=== PATIENT | female | born 1985 | race Two or more races ===

== ENCOUNTER 2025-09-24 13:08 | Outpatient (AMB) | payer MEDICAID, SELFPAY ==
[2025-09-24 13:19] VITALS: BP 100/60; PULSE 104; RESP 18; TEMP 36.8; O2SAT 98
--- NOTE | 2025-09-24 13:19 | OBCLNT_ITS ---
Vital Signs 09/24/25 13:19 Weight 74.162 kg Weight Measurement Method Standing Scale BP 100/60 Blood Pressure Source Automatic Cuff Blood Pressure Location Left Upper Arm Position Sitting Respiration 18 Pulse 104 H Pulse Source Monitor Temp 98.2 F Temp Source Oral Pulse Oximetry (%) 98 Oxygen Delivery Method Room Air Allergies/Home Meds Allergies & Medications Allergies No Known Allergies Allergy (Verified 09/25/25 09:15) Medication Reconciliation No Known Home Medications 09/24/25 [History Confirmed 09/25/25] Intake Visit Data Collection New Patient or Established: New Patient (never been to [facility]) Reason for Visit:: ob care Seen by Clinical Staff ONLY (RN/MA): No Sr. Media Manager Required: Yes Do You Feel Safe at Home: Yes Authorities Contacted: N/A PCP or OBGYN visit in last 3 months: Yes Hx Now: Yes Are you currently on any form of Control: No Last menstrual period: 01/02/25 Pain Present Currently: No Pain Scale Used: Henderson-Ortiz/Numerical Pain scale:: 0 Smoking Status Smoking Status: Never smoker Immunizations Flu Vaccine in the Last 12 Months: No Flu Vaccine Exclusion Criteria: No Exclusion Criteria Questionnaires Covid-19 Vaccine Questionnaire Has patient been vacinated for Covid-19 Have you been vacinated for Covid-19: Yes PHQ-9 PHQ-2 Over the last 2 weeks, how often have you been bothered by any of the following problems? 1. Little interest or pleasure in doing things: not at all 2. Feeling down, depressed, or hopeless: not at all Total score: 0 PHQ-9 3. Trouble falling or staying asleep, or sleeping too much: Not at all 4. Feeling tired or having little energy: Not at all 5. Poor appetite or overeating: Not at all 6. Feeling bad about yourself - or that you are a failure or have let yourself or your family down: Not at all 7. Trouble concentrating on things, such as reading the newspaper or watching television: Not at all 8. Moving or speaking so slowly that other people could have noticed? - Or the opposite - being so fidgety or restless that you have been moving around a lot more than usual: not at all 9. Thoughts that you would be better off or of hurting yourself in some way: Not at all Total score: 0 If you checked off any problems, how difficult have these problems made it for you to do your work, take care of things at home, or get along with other people?: not difficult at all Source: Developed by Drs. Hemal Beckett, Radha Lee, Tenzin Cole and colleagues, with an educational yolanda from [employer]. Depression screen completed yes Social History Living Situation History Marital Status: Single Lives With: Family Housing: House Tobacco History Smoking Status: Never smoker Second Hand Smoke Exposure: No Alcohol History Alcohol Intake: Never Domestic Abuse History Do You Feel Safe at Home: Yes OB Initial Visit OB Flowsheet OB Flowsheet Initial Weight: Not Recorded Date -?-?-?-?-?-?-?-?-?-?-?-?- EGA Weight BP Alb Glu CTX Pres Fundal ht FHR Mov Dilation Station Effacement Hx Notes Visit Note 09/24/25 -?-?-?-?-?-?-?-?-?-?-?-?- 39w 0d 74.162 kg 100/60 occasional cephalic 38 145 active 09/25/25 -?-?-?-?-?-?-?-?-?-?-?-?- 39w 1d 74.899 kg 115/74 occasional 38 150 active Menstrual History Menstrual reliability: definite Flow: normal Menstrual regularity: regular Monthly: Yes Age at menarche: 15 On control pills at conception: No OB History : 5 Para: 3 Hx Total # of Abortions (Spontaneous & Elective): 1 # of Living Children: 3 Delivery History 1st : Child's name: NA date: 03/24/09 sex: female Delivery type: weight (oz): 3628.739 g History of depression before or after : No 2nd : Child's name: NA date: 03/02/13 sex: male Delivery type: weight (oz): 3628.739 g History of depression before or after : No 3rd : Child's name: NA date: 04/09/20 sex: female Delivery type: History of depression before or after : No Infection History & Risk Evaluation History of STDs: none HIV risk evaluation: low risk Hepatitis B risk evaluation: low risk Patient or partner has history of Genital Herpes: No Varicella/chicken pox status: immunized Genetic Screening & History Genetic Screening/Teratology Counseling - Includes patient, baby's father, or anyone in either family with: 1. Patient's age 35 years or older as of estimated date of delivery: Yes 2. Thalassemia (Yi, Indonesian, Mediterranean, or Background); MCV less than 80: No 3. Neural Tube Defect (Meningomyelocele, Spina Bifida, or Anencephaly): No 4. Congenital Heart Defect: No 5. Down Syndrome: No 6. Cristian-Sachs (Ashkenazi Church, Cajun, [place]): No 7. Herson Disease (Ashkenazi Church): No 8. Familial Dysautonomia (Ashkenazi Church): No 9. Sickle Cell Disease or Trait (): No 10. Hemophilia or other blood disorders: No 11. Muscular Dystrophy: No 12. Cystic Fibrosis: No 13. [place]'s Chorea: No 14. Mental Retardation/Autism: No 15. Other inherited genetic or chromosomal disorder: No 16. Maternal Metabolic Disorder (EG,TYPE 1 Diabetes, PKU): No 17. Patient or baby's father had a child with defects not listed above: No 18. Recurrent loss or a stillbirth: No 19. Medications (including supplements, vitamins, herbs or otc drugs)/illicit/recreational drugs/alcohol since last menstrual period: No 20. Any other: No Infection History 1. Live with someone with TB or exposed to TB: No 2. Rash or viral illness since last menstrual period: No 3. Hepatitis B,C: No Other (see comments) Source: [employer] [place] [employer] Review of Systems Review of Systems Systems Reviewed: All systems reviewed, normal except as documented Exam Narrative Physical exam: Size equal to38 weeks / term uterus non tender Occasional/ contractions non tender FHR is 140's feta presentation is vertex bedside US placenta is corporal or fundus, body General Limitations: no limitations General Appearance: alert and cooperative Office Procedures OBC Clinic LOC & Office Proc's Nursing/Assessment Patient Status: Initial/New Patient OB Clinic Nursing Assessment: Medication Reconciliation, Update PMH in EMR and Vital Signs OB Clinic Coordination of Care: Consent,records obtained, informed consent, Education Simp Pt/Fam, Lab and Imaging orders, Results/Orders obtained and Staff clarify orders Special Needs: Heart tones New Patient Charge New Patient Point Assignment: [id number] New Patient Point Charge: TECHNICAL COMMUNICATION TEACHER Level 3 (4760-1967) Assessment & Plan Diagnosis / Problem List (1) : Status: Acute Qualifiers: Weeks of gestation: 37 weeks Qualified Code(s): Z3A.37 - 37 weeks gestation of (2) Previous delivery affecting : Status: Acute (3) Insufficient care: Status: Acute Qualifiers: Trimester: unspecified trimester Qualified Code(s): O09.30 - Supervision of with insufficient care, unspecified trimester Additional Plan to L&D for NST / Ob complete US and then if discharged to follow up in 1 day and will schedule repeat LTCS
== END 2025-09-24 13:53 | disposition home or self-care (01) ==
LOC: HODSOBC 13:08
PROVIDERS: PCP Nurse Practitioner; Referring Provider Nurse Practitioner; Supervising Provider Obstetrics & Gynecology; Visit Provider Obstetrics & Gynecology
DX: O09.33 Supervision of pregnancy with insufficient antenatal care, third trimester (principal); O09.293 Supervision of pregnancy with other poor reproductive or obstetric history, third trimester; O34.211 Maternal care for low transverse scar from previous cesarean delivery; O09.523 Supervision of elderly multigravida, third trimester; Z3A.39 39 weeks gestation of pregnancy
CPT/HCPCS: 99203; G0463

== ENCOUNTER 2025-09-24 13:59 | Outpatient (CLI) | payer MEDICAID, SELFPAY ==
--- NOTE | 2025-09-24 14:07 | XR_ITS ---
Examination: Complete OB ultrasound greater than 14 weeks Date and time of exam: September 24, 2025, 1420 hours INDICATIONS: Limited care Findings: Viable intrauterine single fetus with single amniotic sac presentation cephalic spine maternal left Cardiac motion 153 bpm Placenta posterior grade 2 Umbilical cord insertion seen Amniotic fluid index 16.4 cm Cervix 3.7 cm Ovaries obscured by the fetus. Composite estimated gestational age based on BPD, head circumference, abdominal circumference, femur length is 39 weeks 3 days Estimated weight 3705 g. Survey of intracranial anatomy, spinal anatomy, abdominal anatomy, four-chamber heart performed with no abnormalities identified. Impression: Viable intrauterine gestation in cephalic presentation.
[2025-09-24 14:08] VITALS: BP 119/77; PULSE 100; RESP 18; RESP 98; TEMP 36.8; BMI 29.9
[2025-09-24 14:10] VITALS: BP 119/77; PULSE 100
[2025-09-24 14:43] VITALS: BP 118/67; PULSE 95
[2025-09-24] MEDS: RINGERS LACTATED 1000 ML 1,000 ML 999 ML IV (16:48)
== END 2025-09-24 16:25 | disposition home or self-care (01) ==
LOC: S4S1 14:00 → S4SX 14:00
PROVIDERS: Referring Provider Obstetrics & Gynecology; Visit Provider Obstetrics & Gynecology
DX: O09.33 Supervision of pregnancy with insufficient antenatal care, third trimester (principal); Z3A.39 39 weeks gestation of pregnancy
CPT/HCPCS: 59025; 76805; J7120

== ENCOUNTER 2025-09-25 08:49 | Outpatient (AMB) | payer MEDICAID, SELFPAY ==
[2025-09-25 09:14] VITALS: BP 115/74; PULSE 89; RESP 16; TEMP 36.8; O2SAT 97; BMI 30.4
--- NOTE | 2025-09-25 09:14 | OBCLNT_ITS ---
Vital Signs 09/25/25 09:14 Height 1.57 m Height Method Stated Weight 74.899 kg Weight Measurement Method Standing Scale BMI 30.4 BP 115/74 Blood Pressure Source Automatic Cuff Blood Pressure Location Left Upper Arm Position Sitting Respiration 16 Pulse 89 Pulse Source Monitor Temp 98.2 F Temp Source Oral Pulse Oximetry (%) 97 Oxygen Delivery Method Room Air Allergies/Home Meds Allergies & Medications Allergies No Known Allergies Allergy (Verified 10/03/25 09:56) Medication Reconciliation docusate sodium 100 mg capsule 100 mg PO BID 10 days #20 caps 09/29/25 [Rx Confirmed 10/03/25] ferrous sulfate 325 mg (65 mg iron) tablet,delayed release 325 mg PO QDAY #30 tabs 09/29/25 [Rx Confirmed 10/03/25] hydrocodone 5 mg-acetaminophen 325 mg tablet 1 tab PO Q6H PRN Patient rated pain 7 to 8 7 days #15 tabs 09/29/25 [Rx Confirmed 10/03/25] ibuprofen 800 mg tablet 800 mg PO Q8HR PRN PAIN 4-6 OR FEVER > 101 10 days #30 tabs 09/29/25 [Rx Confirmed 10/03/25] Immunizations Immunizations Flu Vaccine in the Last 12 Months: Yes Flu Vaccine Exclusion Criteria: Already Received Care OB Visit Log OB Flowsheet Initial Weight: Not Recorded Date -?-?-?-?-?-?-?-?-?-?-?-?- EGA Weight BP Alb Glu CTX Pres Fundal ht FHR Mov Dilation Station Effacement Hx Notes Visit Note 09/24/25 -?-?-?-?-?-?-?-?-?-?-?-?- 39w 0d 74.162 kg 100/60 occasional cephalic 38 145 active 09/25/25 -?-?-?-?-?-?-?-?-?-?-?-?- 39w 1d 74.899 kg 115/74 occasional 38 150 active LIZETH Calculator Estimated Delivery Date Method Current WG Current Estimate 10/01/25 Ultrasound #1 40w 3d Other Estimates 10/09/25 LMP (Uncertain) 39w 2d Notes Visit Date: 09/25/25 Last Updated by: Haley Bui MD patient scheduled for repeat LTCS on 09/27/2025 and will be with OB physician automation engineer that day . That was the earliest day it could be accommodated . labor precautions given / labs from [facility] were faxed yesterday to L&D . Patient counselled on surgery and Risks and benefits and blood transfusion . she does not want tubal sterilization and has no consent anyways . Labor precautions given Visit Date: 09/24/25 Last Updated by: Haley Bui MD 39 years old , previous c section x 3 . initially seen at [facility] at 10.2 weeks based on LMP of 01/02/2025 Then she went to [place] and she tried to get seen at [facility] but they would not see her / Her labs / Us are all from [place] and she states she is going to be 39 weeks tomorrow per [place] records / she has previous 3 c sections and is not wanting sterilization She is c/o pain in pelvic area and will refer to the [facility] now for NST/ evaluation of the baby for AMA/ insufficient care and also uncertain dates there is no MSAFPor genetic screening or [place]ound in [place] . She is Rubella immune, RH positive, RPR NR and HIV and Hep B negative done in February 2025 at [facility] Office Procedures OBC Clinic LOC & Office Proc's Nursing/Assessment Patient Status: Established Patient OB Clinic Nursing Assessment: Medication Reconciliation, Update PMH in EMR and Vital Signs OB Clinic Coordination of Care: AMA, Complex Care and Chronic Disease 1-5, Consent,records obtained, informed consent, Education Simp Pt/Fam, 1 Ins Authorization, Lab and Imaging orders, Results/Orders obtained and Staff clarify orders Special Needs: Heart tones Established Patient Charge Established Patient Point Assignment: 170 Established Patient Point Charge: EP Level 5 (160-above) Assessment & Plan Diagnosis / Problem List (1) Insufficient care: Status: Acute Qualifiers: Trimester: unspecified trimester Qualified Code(s): O09.30 - Supervision of with insufficient care, unspecified trimester (2) Previous delivery affecting : Status: Acute (3) : Status: Acute Qualifiers: Weeks of gestation: 37 weeks Qualified Code(s): Z3A.37 - 37 weeks gestation of (4) Advanced maternal age (AMA) in : Status: Acute Additional Assessment patient scheduled for repeat LTCS on 09/27/2025 and will be with OB physician automation engineer that day . That was the earliest day it could be accommodated . labor precautions given / labs from [facility] were faxed yest arnulfo to L&D . Patient counselled on surgery and Risks and benefits and blood transfusion . she does not want tubal sterilization and has no consent anyways . Labor precautions given Additional Plan Patient was given the reason for proceeding with surgery. She was given the risk benefits and options. She chose to proceed with the surgery. Risks of surgery to include risk of infection bleeding, possible injury to the surrounding organs like the urinary bladder, intestines, ureter, uterus, tubes, ovaries, nerves, blood vessels, possible risk of wound dehiscence later on or hernia development later on in future. However the surgery is done when the benefits outweigh the risks Possible risks of blood transfusion and options were also discussed. All questions answered Patient willing to proceed with surgery.Scheduled for 09/27/2025 at 07.30 am
== END 2025-09-25 09:46 | disposition home or self-care (01) ==
LOC: HODSOBC 08:49
PROVIDERS: Supervising Provider Obstetrics & Gynecology; Visit Provider Obstetrics & Gynecology
DX: O09.33 Supervision of pregnancy with insufficient antenatal care, third trimester (principal); O09.523 Supervision of elderly multigravida, third trimester; O09.293 Supervision of pregnancy with other poor reproductive or obstetric history, third trimester; O34.211 Maternal care for low transverse scar from previous cesarean delivery; Z3A.39 39 weeks gestation of pregnancy
CPT/HCPCS: 99215; G0463

== ENCOUNTER 2025-09-27 05:05 | Inpatient (IN) | payer MEDICAID, SELFPAY ==
[2025-09-26 11:13] LABS: Basophils # (Auto) 0.0 Thou/mm3 (0.0-0.2); Basophils % (Auto) 1 % (0-2.5); Eosinophils # (Auto) 0.1 Thou/mm3 (0.0-0.5); Eosinophils % (Auto) 1 % (0-10); Hematocrit 34.1 % (36.0-46.0); Hemoglobin 11.5 g/dL (12.0-16.0); Immature Granulocytes Auto 0.08 Thou/mm3 (0.00-0.00); Lymphocytes # (Auto) 2.5 Thou/mm3 (1.0-4.8); Lymphocytes % (Auto) 30 % (10-50); Mean Corpuscular HGB Conc 33.7 g/dl (31.0-37.0); Mean Corpuscular Hemoglobin 31.9 pg (25.0-35.0); Mean Corpuscular Volume 95 fL (80-100); Monocytes # (Auto) 0.6 Thou/mm3 (0.0-0.8); Monocytes % (Auto) 8 % (0-12); Neutrophils # (Auto) 5.1 Thou/mm3 (1.8-7.7); Neutrophils % (Auto) 60 % (37-80); Nucleated Red Blood Cell # 0.00 Thou/mm3 (0.00-0.00); Nucleated Red Blood Cell % 0 /100 WBC (0); Platelet Count 158 Thou/mm3 (140-440); RDW Standard Deviation 44.7 fL (36.4-46.3); Red Blood Count 3.60 Miln/mm3 (4.00-5.20); White Blood Count 8.4 Thou/mm3 (3.6-11.0)
[2025-09-26 12:10] LABS: HIV (1&2) Antibody Rapid Non-Reactive
[2025-09-27] VITALS (20 sets, daily range): BP systolic 85–129; BP diastolic 49–75; PULSE 58–92; RESP 14–22; TEMP 36.3–36.9; O2SAT 97–100; BMI 29.2
[2025-09-27] MEDS: RINGERS LACTATED 1000 ML 1,000 ML 100 ML IV ×2 (05:30→07:19)
[2025-09-27 06:26] LABS: Syphilis Nonreactive (Nonreactive)
[2025-09-27 06:53] LABS: Influenza A Ag Negative; Influenza B Ag Negative
[2025-09-27 06:54] LABS: COVID-19 Antigen (In-House) Negative (Negative)
[2025-09-27] MEDS: CITRIC ACID/SODIUM CITR 15 ML UDC (BICITRA) 30 ML PO (07:23)
[2025-09-27] MEDS: FAMOTIDINE INJ 10 MG/ML VIAL 2 ML 20 MG IV (07:23)
[2025-09-27] MEDS: ceFAZolin/D5W 2 GM IV 2 GM/100 ML BAG IV (07:23)
--- NOTE | 2025-09-27 08:31 | ESOP_ITS ---
Operative Note - SPORTS EDITOR Procedure Date of procedure: 09/27/25 Procedure Performed: Repeat low-transverse section Indication: The patient is a 39-year-old -0-1-3 EDC 10/01/2025 with all care in [place] presents for scheduled elective repeat section. By dating, she is 39-3/7 weeks. She is [place]-speaking only. She was consented for a repeat low-transverse section through an official consulting solution manager. Of note she did not sign tubal ligation papers. Pre-Op diagnosis: 1. IUP 39-3/7 weeks 2. Previous x 3 Post-Op diagnosis: Same Anesthesia type: Spinal Procedure description: After obtaining informed consent, the patient was brought back to the operating room and spinal anesthesia administered. She was then prepped and draped in dorsal supine position with a leftward tilt in a normal sterile fashion. A Valderrama catheter was inserted into the patient's bladder. The patient was given 2 g of Ancef by anesthesia. A Pfannenstiel skin incision was made with the scalpel and the prior scar removed. The incision was carried down to the underlying fascia. The fascia was incised in the midline, and the fascial incision extended laterally using Zarco scissors. The superior aspect of the fascia was grasped with Savita clamps and the underlying rectus muscles dissected off using blunt and sharp dissection. This was repeated in the inferior aspect of the incision. The rectus muscles were in the midline and the peritoneum was entered using a scalpel and also with blunt dissection with surgeon's fingers. This was extended superiorly and inferiorly with good visualization of the bladder. The bladder blade was inserted the uterus was incised in a low transverse fashion with a scalpel above the bladder reflection. Of note, the lower lower uterine segment was bulging however there was no window present. The uterine incision was extended laterally with blunt dissection with the surgeon's fingers. The bag of landry was ruptured and copious clear fluid noted. The bladder blade was removed, and the infant was delivered in a vertex presentation atraumatically. The cord was clamped and cut after waiting 30 seconds as the baby was vigorous at . The infant was handed off to the waiting pediatric staff. Cord blood was sent. Cord gases were saved. The placenta was then manually removed, and the uterus exteriorized and cleared of all clots and debris. The uterine incision was repaired using 0 Monocryl in a running locked fashion. A couple of [id number] sutures of 2- 0 chromic were used to obtain excellent hemostasis. The uterus was returned to the patient's abdominal cavity, and copious irrigation carried out with warm normal saline. The uterine incision was reexamined several times and noted to be hemostatic. After ensuring the rectus muscles were hemostatic, these were reapproximated using 0 Monocryl in a running fashion. This fascia was closed with 0 Vicryl in a running fashion. The subcutaneous tissues were irrigated and found to be hemostatic. These were reapproximated using running suture of 2-0 plain. The skin was closed with subcuticular suture of 4-0 Monocryl. The patient tolerated the procedure well, sponge, lap, needle, and instrument counts were correct x 2. The patient went to the recovery awake in stable condition. Pathology was none. Fluids: crystalloid Fluid amount (mL): 1,200 Urine output (mL): 150 Specimen: none Implants: None Estimated blood loss (ml): 500 Findings: Liveborn female in the MEMO presentation with no nuchal cord or meconium Apgars were 9 and 9 weight was 9 pounds 9 ounces the placenta was complete spontaneous grossly normal. Both fallopian tubes and ovaries were normal. She had a thin lower uterine segment. Very little scar tissue present in the patient's abdomen. Complications: none Surgical staff Operation Date: 09/27/25 07:45 Case Staff SURGICAL AIDES TEACHER: Vazquez James RNsuperintendent maintenance: Aldo Means Diagnosis Discharge Diagnosis (1) Previous delivery affecting : Status: Acute Problem details: Patient's status post repeat #4 without complications. EBL was 500 cc. (2) Advanced maternal age (AMA) in : Status: Acute (3) care following delivery: Status: Acute Problem List Completed Was Problem List Reviewed/Reconciled?: Yes
--- NOTE | 2025-09-27 08:46 | ESHP_ITS ---
Documentation for date of: 09/27/25 OB Labor/Induct. HPI History of Present Illness Chief complaint: Scheduled repeat : 5 Para: 3 Term pregnancies: 3 pregnancies: 0 Living children: 3 History of Abortions: Spontaneous and Elective: 1 History of sections: Yes (X3) History of : No Date of last menstrual period: 01/02/25 LIZETH: 10/01/25 Gestational Age (weeks): 39 Gestational Age (days): 3 Gestational age based on last menstrual period: 38 History of present illness: The patient is a 39-year-old -0-1-3 who presents for scheduled repeat C- section. Most of her care was performed in [place]. She has an EDC of 10/01/2025. On the day of admission, she reported good movement no contractions no loss of fluids no vaginal bleeding. She never signed tubal ligation papers in the office but does not desire another . She states all her previous C-sections were uncomplicated. We have some records from [place] on the chart. The patient is Lao-speaking only and consented through an official repair department manager. She does understand some Georgian. History of Present Dating criteria: LMP confirmed by 2nd trimester US Adequate Care: Yes (In [place] ) Ultrasounds: normal mid trimester US Obstetrical complications: none Medical complications: none Labs Maternal Blood Type: O Pos Labs: Positive: Rubella Titre, Negative: RPR, Hepatitis B, HIV, Chlamydia and Gonorrhea and Unknown: Herpes Type 1, Herpes Type 2, Group Beta Strep and Covid-19 Past Medical History Surgical History SURGICAL: Positive Section (X3) Past Medical History Comments PMH COMMENT: Patient denies significant past medical history including asthma diabetes hypertension. She has a history of x 3. She states she had no complications after any of her C-sections. Meds Home Medications and Allergies Home Medications ?Medication ?Instructions ?Recorded ?Confirmed ?Type No Known Home Medications 09/24/2509/17 History Allergies Allergy/AdvReac Type Severity Reaction Status Date / Time No Known Allergies Allergy Verified 09/27/25 05:36 OB Exam Physical Exam Vital signs: Temp Pulse Resp BP Pulse Ox O2 Del Method 98 F 90 16 122/73 100 Room Air 09/27/25 05:17 09/27/25 05:17 09/27/25 05:17 09/27/25 05:17 09/27/25 06:57 09/27/25 05:17 Constitutional Constitutional: no acute distress Comments: Patient is alert and orient x 3 in no apparent distress. She is healthy with good color. Routine Respiratory Exam Respiratory: Present CTA bilaterally Routine Cardiovascular Exam Cardiovascular: Present RRR Routine Abdominal Exam Abdominal: Present soft and surgical scars (Prior Pfannenstiel scar x 3) Detailed Labor and Delivery Exam Membranes: intact monitor accelerations: 15x15 monitor decelerations: None rodent exterminator variability: Moderate (11-25) Contraction frequency (min): Irregular Routine Extremities Exam Comments: No cyanosis clubbing or edema OB Results Labs 09/26/25 09:40 Labs: Short CBC 09/26/25 Range/Units 09:40 WBC 8.4 (3.6-11.0) Thou/mm3 Hgb 11.5 L (12.0-16.0) g/dL Hct 34.1 L (36.0-46.0) % Plt Count 158 (140-440) Thou/mm3 OB Assessment & Plan Assessment and Plan (1) Previous delivery affecting : Status: Acute (2) Advanced maternal age (AMA) in : Status: Acute (3) care following delivery: Status: Acute
[2025-09-27] MEDS: OXYTOCIN in NS 20 units 20 UNIT/1,000 ML BAG 125 UNIT IV ×2 (10:01→17:27)
[2025-09-27] MEDS: ONDANSETRON INJ 2 MG/ML INJ 2 ML 4 MG IVP (10:15)
[2025-09-27] MEDS: KETOROLAC INJ 30 MG/ML VIAL IVP ×2 (10:26→17:27)
--- NOTE | 2025-09-27 10:26 | PD.LDDELS ---
Data (Cerda) Data Hx Section: Yes (X3) Maternal Blood Type: O Pos Rubella Titre: Positive RPR: Non-reactive Labs: Negative: RPR, Hepatitis B, HIV, Chlamydia and Gonorrhea and Unknown: Group Beta Strep : 5 Term: 3 : 0 Livin Abortions: Spontaneous & Theraputic: 1 Delivery Data (Cerda) Labor Data ROM date: 09/27/25 ROM time: 07:58 Amniotic membrane rupture type: Artificial Amniotic fluid description: Clear Delivery Data EDC: 10/01/25 EDC calculated by:: LMP/early US confirmation Date of arrival to unit: 10/04/25 Time of arrival to unit: 05:30 [place] delivery date: 09/27/25 delivery time: 07:59 Gestational age (weeks): 39 Gestational age (days): 3 Placenta delivery date: 09/27/25 Placenta delivery time: 08:00 Delivered by: Echo Dixon (OB Clinic) Delivery nurse: jackson Vallejo nurse: reginald Transport Specialist at delivery: No Support person(s) at delivery: patients sister Other staff at delivery: see intra op documentation Delivery Method Delivery method: Low Transverse Presentation: Vertex position: OA Anesthesia Type Anesthesia Type: Spinal Anesthesia type: Spinal Delivery Room Medications Delivery room medications: Pitocin 20 u IV Placenta Placenta delivery description: Manual Removal Cord blood sent to lab: Yes cord blood collection: Cord Blood Type Episiotomy Episiotomy description: None EBL Estimated blood loss (ml): 500 Umbilical Cord cord description: 3 Vessels Additional Procedures See op report for further details Complications Complications: None [place] Data (Cerda) [place] Data order: 1 's gender: Female Identification band number: [id number] weight (gms): 4340 g Weight (pounds): 9 lbs and 9.1 ozs length: 52 cm 1 minute: 9 5 minutes: 9
[2025-09-28] MEDS: RINGERS LACTATED 1000 ML 1,000 ML 100 ML IV (00:01)
[2025-09-28 03:41] VITALS: BP 99/62; PULSE 87; RESP 16; TEMP 36.9; O2SAT 98
[2025-09-28 05:47] LABS: Basophils # (Auto) 0.0 Thou/mm3 (0.0-0.2); Basophils % (Auto) 0 % (0-2.5); Eosinophils # (Auto) 0.0 Thou/mm3 (0.0-0.5); Eosinophils % (Auto) 0 % (0-10); Hematocrit 28.1 % (36.0-46.0); Hemoglobin 9.7 g/dL (12.0-16.0); Immature Granulocytes Auto 0.04 Thou/mm3 (0.00-0.00); Lymphocytes # (Auto) 1.8 Thou/mm3 (1.0-4.8); Lymphocytes % (Auto) 19 % (10-50); Mean Corpuscular HGB Conc 34.5 g/dl (31.0-37.0); Mean Corpuscular Hemoglobin 32.2 pg (25.0-35.0); Mean Corpuscular Volume 93 fL (80-100); Monocytes # (Auto) 0.6 Thou/mm3 (0.0-0.8); Monocytes % (Auto) 6 % (0-12); Neutrophils # (Auto) 6.9 Thou/mm3 (1.8-7.7); Neutrophils % (Auto) 73 % (37-80); Nucleated Red Blood Cell # 0.00 Thou/mm3 (0.00-0.00); Nucleated Red Blood Cell % 0 /100 WBC (0); Platelet Count 116 Thou/mm3 (140-440); RDW Standard Deviation 43.8 fL (36.4-46.3); Red Blood Count 3.01 Miln/mm3 (4.00-5.20); White Blood Count 9.4 Thou/mm3 (3.6-11.0)
[2025-09-28] MEDS: KETOROLAC INJ 30 MG/ML VIAL IVP ×2 (05:56)
[2025-09-28 07:15] VITALS: BP 108/58; PULSE 65; RESP 20; TEMP 36.9; O2SAT 97
[2025-09-28] MEDS: DOCUSATE SOD 100 MG CAPSULE PO (08:20)
[2025-09-28] MEDS: SIMETHICONE 80 MG CHEW PO (08:20)
[2025-09-28] MEDS: IBUPROFEN TAB 400 MG TABLET 800 MG PO ×2 (12:00→23:52)
[2025-09-28] MEDS: HYDROcodone/APAP 5/325 TABLET 1 TAB PO ×2 (14:12→18:50)
[2025-09-28 16:00] VITALS: BP 108/69; PULSE 73; RESP 16; TEMP 36.5; O2SAT 98
[2025-09-28 19:30] VITALS: BP 107/66; PULSE 72; RESP 16; TEMP 36.8; O2SAT 96
[2025-09-29 03:45] VITALS: BP 107/70; PULSE 69; RESP 16; TEMP 36.4; O2SAT 97
[2025-09-29 07:45] VITALS: BP 116/72; PULSE 69; RESP 20; TEMP 36.8; O2SAT 98
[2025-09-29] MEDS: DOCUSATE SOD 100 MG CAPSULE PO (07:53)
[2025-09-29] MEDS: IBUPROFEN TAB 400 MG TABLET 800 MG PO (07:53)
--- NOTE | 2025-09-29 11:02 | PD.LDDS ---
DS: Providers Provider Date of admission: 09/27/25 05:05 Primary care physician: Physician No Primary/Family Admitting Provider: Echo Dixon MD ([facility]) Attending Provider on Admission: Omar Messer MD Attending Provider on DC: Huma Yo MD Discharging Provider: Huma Yo MD DS: Diagnosis Discharge Diagnosis (1) care following delivery: Status: Acute (2) Advanced maternal age (AMA) in : Status: Acute (3) Insufficient care: Status: Acute (4) Previous delivery affecting : Status: Acute Problem List Completed Was Problem List Reviewed/Reconciled?: Yes Summary/Hosp Course Brief History: Inga is a 39yo A1uhoH4 s/p uncomplicated repeat section at term, doing well on POD 2. She has had an uncomplicated post-operative course, meeting all milestones and feels ready for discharge home. She is ambulating without lightheadedness, tolerating regular diet no n/v, spontaneously voiding without issue. She has no chest pain or shortness of breath. No fevers or chills. Pain well controlled. Vitals normal, benign exam. Hemodynamically stable with no evidence of infection. Post-op Hgb 9.7. Peripartum Data Delivery Method: Low Transverse Episiotomy Description: None Procedures: Procedures Operation Date: 09/27/25 07:45 Actual Procedure Side Surgeon p in OB Not Applicable Echo Dixon ([facility])MD Status at Discharge Functional status at discharge: independent ambulation Overall status at discharge: patient is back to baseline Time Spent with Patient Time attestation: Total time spent providing and/or coordinating discharge services: Exam Vital Signs Temp Pulse Resp BP Pulse Ox O2 Del Method 98.3 F 69 20 116/72 98 Room Air 09/29/25 07:45 09/29/25 07:45 09/29/25 07:45 09/29/25 07:45 09/29/25 07:45 09/29/25 07:45 Narrative Exam General: well developed, well nourished, no acute distress, conversant Cardiac: normal heart rate Lungs: breathing without distress Abdomen: soft, post-gravid, non-tender, no rebound or guarding, pfannenstiel incision covered by dry/clean/intact prineo bandage. Incision well reapproximated. No erythema, drainage or induration. Fundus firm at u-2cm. Extremities: no pain with palpation of calves, trace edema of BLE Discharge Plan Plan Patient Disposition: HOME (Self Care) Patient condition on transfer: Stable Prescriptions/Referrals Prescriptions/Med Rec: New hydrocodone-acetaminophen 5-325 mg Tablet 1 tab PO Q6H MDD 4 tablets PRN (Reason: Patient rated pain 7 to 8) 7 Days Qty: 15 0RF docusate sodium 100 mg Capsule 100 mg PO BID 10 Days Qty: 20 0RF ibuprofen 800 mg tablet 800 mg PO Q8HR PRN (Reason: PAIN 4-6 OR FEVER > 101) 10 Days Qty: 30 0RF ferrous sulfate 325 mg (65 mg iron) tablet,delayed release (DR/EC) 325 mg PO QDAY Qty: 30 0RF Referrals: [facility] ([facility]),Echo Figueredo MD [Physician, DOWEL MACHINE OPERATOR] No Primary/Family,Physician [Primary Care Provider] Patient/Caregiver Discharge Instructions Discharge Activity: activity as tolerated and other Other Discharge Activity Instructions:: vaginal rest and no heavy lifting more than 10 pounds for 6 [address] while taking narcotic. keep incision clean and dry, do not submerge Other Discharge Diet Instructions: regular Education Materials: Understanding Blues, Breast Care After , C Section Dc Print Language: Swazi Activity Restrictions/Additional Instructions: follow up with Dr. Dixon in 1 to 2 weeks for incision check, call clinic to schedule appointment Stand Alone Forms: Kristin Award Info., Patient Portal Info Letter Discharge Order Discharge Orders: Discharge (Routine); Ordered 09/29/25 Ordered By: Huma Yo Planned Discharge Date 09/29/25 (3) Insufficient care Qualifiers: Trimester: unspecified trimester Qualified Code(s): O09.30 - Supervision of with insufficient care, unspecified trimester
== END 2025-09-29 13:15 | disposition home or self-care (01) | DRG 540 ==
LOC: S4SX 07:27 → S4NX 07:46
PROVIDERS: Admitting Provider Obstetrics & Gynecology; Visit Provider Obstetrics & Gynecology
PROC: 10D00Z1 Extraction of Products of Conception, Low, Open Approach (ICD-10-PCS; CPT 59514; principal; 2025-09-27 07:30)
DX: O34.211 Maternal care for low transverse scar from previous cesarean delivery (principal); Z37.0 Single live birth; Z3A.39 39 weeks gestation of pregnancy
CPT/HCPCS: 36415; 85025; 86703; 86780; 86850; 86900; 86901; 86923; 87502; 87811; A4217; A4314; A4649; J0689; J1885; J2274; J2371; J2405; J2590; J3490; J7120; A9270; J2270

== ENCOUNTER 2025-10-03 09:20 | Outpatient (AMB) | payer MEDICAID, SELFPAY ==
[2025-10-03 09:48] VITALS: BP 127/76; PULSE 63; RESP 14; TEMP 36.6; O2SAT 97; BMI 28.3
--- NOTE | 2025-10-03 09:48 | AMB.OBPP ---
Vital Signs 10/03/25 09:48 Height 1.55 m Height Method Stated Weight 68.152 kg Weight Measurement Method Standing Scale BMI 28.3 BP 127/76 Blood Pressure Source Automatic Cuff Blood Pressure Location Left Upper Arm Position Sitting Respiration 14 Pulse 63 Pulse Source Monitor Temp 98 F Temp Source Oral Pulse Oximetry (%) 97 Oxygen Delivery Method Room Air Allergies/Home Meds Allergies & Medications Allergies No Known Allergies Allergy (Verified 10/03/25 09:56) Medication Reconciliation ferrous sulfate 325 mg (65 mg iron) tablet,delayed release 325 mg PO QDAY #30 tabs 09/29/25 [Rx Confirmed 10/03/25] Intake Visit Data Collection New Patient or Established: Established Patient (seen at [facility] within 3 years) Reason for Visit:: Seen by Clinical Staff ONLY (RN/MA): No Oil Laboratory Analyst Required: Yes Oil Laboratory Analyst's name/title: MILAGROS MURPHY Do You Feel Safe at Home: Yes Authorities Contacted: N/A PCP or OBGYN visit in last 3 months: Yes Hx Now: No Are you currently on any form of Control: No Pain Present Currently: Yes Pain Scale Used: Henderson-Ortiz/Numerical Pain scale:: 3 Smoking Status Smoking Status: Never smoker Immunizations Flu Vaccine in the Last 12 Months: Yes Flu Vaccine Exclusion Criteria: Already Received 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: Past Medical History Past Medical History: No Hx Neurological Disorders, No Hx Cardiac Disorders, No Hx Cancer, No Hx Blood Disorders, No Hx Gastrointestinal Disorders, No Hx Renal Disease, No Hx Diabetes Mellitus Type 1 and No Hx Diabetes Mellitus Type 2 Questionnaires Covid-19 Vaccine Questionnaire Has patient been vacinated for Covid-19 Have you been vacinated for Covid-19: Yes Social History Living Situation History Marital Status: Lives With: Family Housing: House Tobacco History Smoking Status: Never smoker Second Hand Smoke Exposure: No Alcohol History Alcohol Intake: Never Domestic Abuse History Do You Feel Safe at Home: Yes EPDS - PP Depression Screening [place] Pospartum Depression Screen I have been able to laugh and see the funny side of things: (0) As much as I always could I have looked forward with enjoyment to things: (0) As much as I ever did I have blamed myself unnecessarily when things went wrong: (0) No, never I have been anxious or worried for no good reason: (0) No, not at all I have felt scared or panicky for no very good reason: (0) No, not at all Things have been getting on top of me: (0) No, I have been coping as well as ever I have been so unhappy that I have had difficulty sleeping: (0) No, not at all I have felt sad or miserable: (0) No, not at all I have been so unhappy that I have been crying: (0) No, never The thought of harming myself has occurred to me: (0) Never EPDS completed yes HPI Interval History: Inga Lovelace presents for follow-up after her fourth repeat section performed on September 27, 2025. The patient is 6 days post-operative and reports that everything is going well. She is not . No specific complaints or concerns were voiced during this visit. She has a history of repeat section #4 on 09/27/2025. The patient has an obstetric history of A0 L4 with a history of 3 prior sections. Her most recent delivery was September 27, 2025, repeat section. 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 Exam Narrative Physical exam: - Abdominal: incision site examined at 6 days post-operative. Surgical tape removed. Incision appears well-healed with good appearance. Office Procedures [facility] LOC & Office Proc's Nursing/Assessment Patient Status: Established Patient [facility] Nursing Assessment: Medication Reconciliation, Update PMH in EMR and Vital Signs [facility] Clinic Coordination of Care: Complex Care and Chronic Disease 1-5, Consent,records obtained, informed consent, Education Simp Pt/Fam, 1 Ins Authorization, Lab and Imaging orders, Results/Orders obtained and Staff clarify orders Established Patient Charge Established Patient Point Assignment: 120 Established Patient Point Charge: EP Level 4 (120-155) Assessment & Plan Diagnosis / Problem List (1) care following delivery: Status: Acute Plan Status Post Repeat Section: - 6 days post repeat section number 4 performed on September 27, 2025. - Incision site healing well with good appearance for timeframe. - Patient not . Plan: - Continue wearing abdominal binder for one month. - No topical treatments needed for incision site. - Return for final visit in one and a half months. - Discuss control options at next visit (tubal ligation was not performed). Contraceptive Counseling: - Tubal ligation was not performed during section. - Patient requires contraceptive planning. Plan: - Discuss contraceptive options at final visit. - Reassess contraceptive needs at follow-up visit.
== END 2025-10-03 10:13 | disposition home or self-care (01) ==
PROVIDERS: Supervising Provider Obstetrics & Gynecology; Visit Provider Obstetrics & Gynecology
DX: Z39.2 Encounter for routine postpartum follow-up (principal)
CPT/HCPCS: 99214; G0463